=== PATIENT | female | born 1970 | race Caucasian/White ===

== ENCOUNTER → 2017-11-30 | Outpatient (CLI) | payer OTHER | LOC: BRMIMAGING 15:26 | PROVIDERS: ATTEND Physician Assistant | DX: M25.552 Pain in left hip (principal) | CPT/HCPCS: 73502-PO ==

== ENCOUNTER → 2017-11-30 | Outpatient (CLI) | payer OTHER | LOC: BRMIMAGING 13:36 | PROVIDERS: ATTEND Physician Assistant | DX: Z12.31 Encounter for screening mammogram for malignant neoplasm of breast (principal); M25.552 Pain in left hip; Z82.62 Family history of osteoporosis | CPT/HCPCS: 73502-PO ==

== ENCOUNTER → 2019-02-16 | Outpatient (CLI) | payer OTHER | LOC: EMCIMAGING 07:08 ==